=== PATIENT | male | born 1945 | race Two or more races ===

== ENCOUNTER 2020-01-02 11:16 | Inpatient (IN) | payer MEDICARE, OTHER ==
[~2020-01-02] VITALS: Ht 167.6 cm; Wt 79.3 kg
[2020-01-02 12:10] LABS: Basophils # (auto) 0 10 ^3/uL (0-0.2); Basophils % (auto) 0.7 % (0.0-2.0); Eosinophils # (auto) 0.1 10 ^3/uL (0-0.8); Eosinophils % (auto) 2.4 % (0.0-7.0); Hematocrit 40.5 % (41.0-53.0); Hemoglobin 13.8 g/dL (13.5-17.5); Lymphocytes # (auto) 1.3 10 ^3/uL (0.4-5.4); Lymphocytes % (auto) 21.3 % (10.0-50.0); Mean Corpuscular Hemoglobin 32.6 pg (28.0-32.0); Mean Corpuscular Hgb Conc. 34.1 g/dL (32.0-36.0); Mean Corpuscular Volume 95.5 fL (80.0-100.0); Monocytes # (auto) 0.4 10 ^3/uL (0-1.3); Monocytes % (auto) 7.4 % (0.0-12.0); Neutrophils % (auto) 68.2 % (37.0-80.0); Platelet Count (auto) 118 10^3/uL (140-450); Red Blood Cells 4.24 10^6/uL (4.5-5.90); Red Cell Distribution Width 13.6 % (11.8-14.3); White Blood Cell 5.9 10^3/uL (4.4-10.8)
[2020-01-02 12:12] LABS: Albumin 3.8 g/dL (3.4-5.0); Anion Gap 6 (5-15); BUN/Creatinine Ratio 27.7; Blood Urea Nitrogen 26 mg/dL (7-18); Calcium 8.7 mg/dL (8.5-10.1); Carbon Dioxide 23 mmol/L (21-32); Chloride 111 mmol/L (98-107); GFR African American 101 mL/min; GFR Non-African American 83 mL/min; Glucose 116 mg/dL (74-106); Magnesium 2.3 mg/dL (1.6-2.6); Sodium 140 mmol/L (136-145)
[2020-01-02 12:17] LABS: Alanine Aminotransferase 44 U/L (16-61); Alkaline Phosphatase 53 U/L (45-117); Aspartate Aminotransferase 32 U/L (15-37); Bilirubin, Total 0.8 mg/dL (0.2-1.0); Total Protein 6.7 g/dL (6.4-8.2)
--- NOTE | 2020-01-02 13:05 | NUR ---
Telemetry admit from ER REY DONG admitted to Telemetry unit after SBAR received. Patient oriented to Kyra Lincoln, primary RN, unit, room, bed, and unit policies regarding patient care and visiting hours. Patient now on continuous telemetry monitoring, tele box # [id number] and telemetry reading on arrival to unit is . Patient weighed by bedscale and encouraged to call if they need something. All questions and concerns addressed, patient verbalized understanding. Note:
[2020-01-02] MEDS ORDERED: MORPHINE SULF INJ 2 MG/ML SYRINGE 1ML IV PRN (13:45)
[2020-01-02] MEDS ORDERED: NITROGLYCERIN 0.4 MG SL TAB SL PRN (13:45)
[2020-01-02] MEDS ORDERED: DEXTROSE (50%) 50ML SYRG IV PRN (14:00)
[2020-01-02] MEDS ORDERED: ACETAMINOPHEN 500 MG TAB PO PRN (14:00)
[2020-01-02] MEDS ORDERED: ONDANSETRON HCL 4 MG/2 ML VIAL IV PRN (14:00)
[2020-01-02] MEDS ORDERED: traMADol HCL 50 MG TAB PO PRN (14:00)
[2020-01-02] MEDS ORDERED: LACTULOSE 20Gm/30ML SOLN PO PRN (14:00)
[2020-01-02 15:00] VITALS: BP 143/68
--- NOTE | 2020-01-02 15:06 | NUR ---
IV insertion IV access obtained, via clean sterile technique by inserting 22 gauge catheter at after attempt(s). IV secured properly. No trauma to site. Patient tolerated well. NOTE:
[2020-01-02 15:38] LABS: CRP High Sensitivity 0.13 mg/dL (< 0.3)
--- NOTE | 2020-01-02 16:20 | NUR ---
DR. WATT AT BEDSIDE DISCUSSING POC WITH PATIENT. EKG DONE FOR DR. WATT
[2020-01-02 16:29] VITALS: BP 143/68
[2020-01-02 17:00] VITALS: BP 135/60
[2020-01-02] MEDS: InsuLIN REG 1unit/0.01ml Soln (100units/ml) SC SCH ×2 (17:00→22:00)
[2020-01-02] MEDS ORDERED: NAPR375T27 PO (17:12)
[2020-01-02] MEDS ORDERED: SIMV-8 PO (17:12)
[2020-01-02] MEDS ORDERED: BENA20TA14 PO (17:12)
[2020-01-02] MEDS ORDERED: TAMS1CAP25 PO (17:12)
[2020-01-02] MEDS ORDERED: CITA-73 PO (17:12)
[2020-01-02] MEDS ORDERED: MEMA1TAB3 PO (17:12)
[2020-01-02] MEDS ORDERED: DONE10TA40 PO (17:12)
[2020-01-02] MEDS: SODIUM CHLORIDE 0.9% 1,000 ML IV SCH (17:32)
[2020-01-02] MEDS: ACCU-CHEK COMFORT CURVE STRIP VI SCH ×2 (17:32→22:07)
--- NOTE | 2020-01-02 20:00 | NUR ---
Opening Shift Note Assumed care of patient. Awake, alert and oriented x4. No S/S of distress/SOB or pain. Instructed on POC and to call for assist PRN. Bed locked, in lowest position, call light within reach, side rails up x2, bed alarm on. Will continue to monitor for changes Q1hr and PRN.
--- NOTE | 2020-01-02 20:10 | NUR ---
SPOKE WITH DAUGHTER IN LAW Spoke with CLARE Escudero about POC of patient. Phone number for Kena [phone]. Password verified. Concerns about patient were addressed with Kena. Verbalized understanding. Will continue with care.
[2020-01-02 22:00] VITALS: BP 106/59
[2020-01-02] MEDS ORDERED: ATORVASTATIN 20 MG TAB PO SCH (22:00)
[2020-01-03] MEDS: SODIUM CHLORIDE 0.9% 1,000 ML IV SCH (04:23)
[2020-01-03 04:37] VITALS: BP 108/54
[2020-01-03] MEDS: InsuLIN REG 1unit/0.01ml Soln (100units/ml) SC SCH ×2 (06:34→11:21)
[2020-01-03] MEDS: ACCU-CHEK COMFORT CURVE STRIP VI SCH ×2 (06:34→11:21)
--- NOTE | 2020-01-03 07:10 | NUR ---
OPENING SHIFT NOTE ASSUMED CARE FROM [employer] [facility]. PATIENT IS AWAKE, ALERT, AND ORIENTED X4. PATIENT HAS NO S/S OF DISTRESS/SOB OR PAIN. INSTRUCTED PATIENT ON POC, PATIENT VERBALIZED UNDERSTANDING. BED IS IN LOWEST POSITION WITH SIDE RAILS RAISED X2, BED WHEELS LOCKED, AND CALL LIGHT IS WITHIN REACH. WILL CONTINUE TO MONITOR.
[2020-01-03 08:10] VITALS: BP 109/60
[2020-01-03 09:00] VITALS: BP 109/60
[2020-01-03] MEDS ORDERED: ENOXAPARIN SOD 40 MG/0.4 ML SYRINGE SC SCH (10:00)
[2020-01-03 10:04] LABS: Urine Bacteria NONE SEEN /hpf (None Seen); Urine Blood Negative /uL (Negative); Urine Specific Gravity 1.011 (1.001-1.035); Urine WBC 1 /hpf (0 - 3)
--- NOTE | 2020-01-03 10:30 | NUR ---
SPOKE WITH DR. HANCOCK AND DR. WATT UPDATED DOCTORS ON PATIENT'S STATUS, DOCTORS ARE AWARE AND AGREE PATIENT CAN BE DISCHARGED. WILL FOLLOW THROUGH WITH ORDERS.
--- NOTE | 2020-01-03 10:45 | NUR ---
SPOKE WITH SON TOYIN. PER TOYIN THERE IS NO POA AT THIS TIME AND FATHER STILL SIGNS HIS OWN PAPERWORK.
--- NOTE | 2020-01-03 11:48 | NUR ---
Discharge instructions given as ordered. Encourage to follow up with PMD as instructed. All questions and concerns addressed. Patient verbalized understanding. Medication reconciliation form completed and copy given to patient. IV removed with catheter intact, pressure dressing applied. Telemetry unit returned to ICU. Patient ambulated to vehicle with walker with all personal belongings, accompanied by staff and family member. No distress noted at time of departure.
== END 2020-01-03 11:44 | disposition home or self-care (01) | DRG 310 ==
LOC: ER 11:16 → TELE-CENTR 11:17
PROVIDERS: ADMIT Internal Medicine; ATTEND Internal Medicine
DX: R00.1 Bradycardia, unspecified (principal); E11.9 Type 2 diabetes mellitus without complications; F03.90 Unspecified dementia, unspecified severity, without behavioral disturbance, psychotic disturbance, mood disturbance, and anxiety; I10 Essential (primary) hypertension; N40.0 Benign prostatic hyperplasia without lower urinary tract symptoms; Z96.652 Presence of left artificial knee joint; E78.5 Hyperlipidemia, unspecified; Z80.3 Family history of malignant neoplasm of breast; Z82.3 Family history of stroke; Z83.3 Family history of diabetes mellitus
CPT/HCPCS: 36415; 70450; 71045; 80053; 81001; 82550; 82962; 83036; 83735; 83880; 84443; 84484; 85025; 85652; 86141; 93005; G0378

== ENCOUNTER 2023-08-01 11:36 | Emergency (ER) | payer MEDICARE ==
[~2023-08-01] VITALS: Ht 165.1 cm; Wt 77.3 kg
[~2023-08-01 11:36] MED LIST: BENA-36 PO; CITA-73 PO; DONE1TAB88 PO; MEMA1TAB3 PO; NAPR-957 PO; SIMV20TA20 PO; TAMS1CAP25 PO
[2023-08-01 12:10] VITALS: PULSE 55; RESP 16; O2SAT 99
[2023-08-01 13:34] LABS: Basophils # (auto) 0 10 ^3/uL (0-0.2); Basophils % (auto) 0.4 % (0.0-2.0); Eosinophils # (auto) 0.1 10 ^3/uL (0-0.8); Eosinophils % (auto) 1.1 % (0.0-7.0); Hematocrit 37.7 % (41.0-53.0); Hemoglobin 12.6 g/dL (13.5-17.5); Lymphocytes % (auto) 17.4 % (10.0-50.0); Mean Corpuscular Hemoglobin 31.6 pg (28.0-32.0); Mean Corpuscular Hgb Conc. 33.5 g/dL (32.0-36.0); Mean Corpuscular Volume 94.3 fL (80.0-100.0); Monocytes # (auto) 0.5 10 ^3/uL (0-1.3); Monocytes % (auto) 8.4 % (0.0-12.0); Neutrophils # (auto) 4.3 10 ^3/uL (1.6-8.6); Neutrophils % (auto) 72.7 % (37.0-80.0); Red Cell Distribution Width 13.4 % (11.8-14.3); White Blood Cell 5.9 10^3/uL (4.4-10.8)
[2023-08-01 13:56] LABS: Alanine Aminotransferase 12 U/L (7-40); Alkaline Phosphatase 97 U/L (46-116); Anion Gap 5 (5-15); BUN/Creatinine Ratio 15.3 (10.0-20.0); Blood Urea Nitrogen 13 mg/dL (9-23); Calcium 8.8 mg/dL (8.7-10.4); Carbon Dioxide 28 mmol/L (20-30); Chloride 108 mmol/L (98-107); Glucose 108 mg/dL (74-106); Potassium 4.3 mmol/L (3.5-5.1); Sodium 141 mmol/L (136-145)
[2023-08-01 13:57] LABS: Albumin 3.7 g/dL (3.2-4.8); Aspartate Aminotransferase 13 U/L (13-40); Bilirubin, Total 0.6 mg/dL (0.2-1.0); Total Protein 5.8 g/dL (5.7-8.2)
[2023-08-01 16:00] VITALS: BP 102/66; PULSE 59; RESP 18; O2SAT 98
== END 2023-08-01 17:38 | disposition home or self-care (01) ==
LOC: EDBD 11:36 → EDUNIT# 11:36 → ER 11:36
DX: R07.81 Pleurodynia (principal); M54.2 Cervicalgia; I10 Essential (primary) hypertension; E78.5 Hyperlipidemia, unspecified; E11.9 Type 2 diabetes mellitus without complications; Z88.0 Allergy status to penicillin
CPT/HCPCS: 36415; 70450; 71101; 71250; 72125; 74176; 80053; 83605; 83735; 84484; 85025

== ENCOUNTER 2024-01-27 11:46 | Inpatient (IN) | payer MEDICARE, MEDICAID ==
[~2024-01-27] VITALS: Ht 185.4 cm; Wt 67.5 kg
[2024-01-27 12:05] VITALS: O2SAT 97
[2024-01-27] MEDS: SODIUM CHLORIDE 0.9% 1,000 ML IVB ONE (12:36)
[2024-01-27 12:47] LABS: Basophils # (auto) 0 10 ^3/uL (0-0.2); Basophils % (auto) 0.1 % (0.0-2.0); Eosinophils # (auto) 0 10 ^3/uL (0-0.8); Eosinophils % (auto) 0.1 % (0.0-7.0); Hematocrit 37.3 % (41.0-53.0); Hemoglobin 12.6 g/dL (13.5-17.5); Lymphocytes # (auto) 0.8 10 ^3/uL (0.4-5.4); Lymphocytes % (auto) 10.1 % (10.0-50.0); Mean Corpuscular Hemoglobin 32.3 pg (28.0-32.0); Mean Corpuscular Hgb Conc. 33.8 g/dL (32.0-36.0); Mean Corpuscular Volume 95.6 fL (80.0-100.0); Monocytes # (auto) 0.6 10 ^3/uL (0-1.3); Monocytes % (auto) 6.8 % (0.0-12.0); Neutrophils # (auto) 6.9 10 ^3/uL (1.6-8.6); Neutrophils % (auto) 82.9 % (37.0-80.0); White Blood Cell 8.3 10^3/uL (4.4-10.8)
[2024-01-27 13:01] LABS: INR 1.06 (0.9-1.15); Partial Thromboplastin Time 22.6 SEC (24.5-34.5); Prothrombin Time 11.2 sec (9.3-11.8)
[2024-01-27 13:10] LABS: Alanine Aminotransferase 19 U/L (7-40); Albumin 3.9 g/dL (3.2-4.8); Alkaline Phosphatase 78 U/L (46-116); Anion Gap 8 (5-15); Aspartate Aminotransferase 16 U/L (13-40); Bilirubin, Total 0.7 mg/dL (0.2-1.0); Blood Alcohol < 3.0 mg/dL (<10); Blood Urea Nitrogen 32 mg/dL (9-23); Calcium 9.2 mg/dL (8.5-10.1); Carbon Dioxide 25 mmol/L (20-30); Chloride 110 mmol/L (98-107); Glucose 111 mg/dL (74-106); Magnesium 1.9 mg/dL (1.6-2.6); Sodium 143 mmol/L (136-145); Total Protein 5.6 g/dL (5.7-8.2)
[2024-01-27] MEDS: HALOPERIDOL LACTATE 5 MG/ML INJ VIAL IV ONE (15:41)
[2024-01-27] MEDS: HALOPERIDOL LACTATE 5 MG/ML INJ VIAL IM ONE (15:58)
[2024-01-27] MEDS: diphenhdrAMINE HCL 50 MG/1 ML VL IV ONE (16:16)
[2024-01-27 17:51] LABS: Urine Bacteria None Seen /hpf (None Seen)
[2024-01-27 18:16] LABS: Urine Blood Negative /uL (Negative); Urine Clarity Clear (Clear); Urine Color Yellow (Yellow); Urine Mucus FEW (None Seen); Urine Protein, UAD TRACE (Negative); Urine Urobilinogen 2 mg/dL (Negative); Urine WBC 1 /hpf (0 - 3)
[2024-01-27 18:18] LABS: Amphetamine Screen, Urine Neg (NEGATIVE); Barbiturate Scree,Urine Neg (NEGATIVE); Benzodiazephine Screen, Urine Neg (NEGATIVE); Cannabinoid Screen, Urine Pos (NEGATIVE); Cocaine Screen, Urine Neg (NEGATIVE); Opiate Scree,Urine Neg (NEGATIVE); Phencyclidine Screen, Urine Neg (NEGATIVE)
[2024-01-27] MEDS ORDERED: SODIUM CHLORIDE 0.9% 1,000 ML IV SCH (19:15)
[2024-01-27] MEDS ORDERED: SODIUM CHLORIDE 0.9% 1,850 ML IV ONE (19:15)
[2024-01-27] MEDS ORDERED: DEXTROSE (50%) 50ML SYRG IV PRN (19:15)
[2024-01-27 19:30] LABS: Triglycerides 100 mg/dL (< 150)
[2024-01-27 19:31] LABS: LDL Cholesterol 93 mg/dL (< 100)
[2024-01-27 19:32] LABS: Cholesterol 157 mg/dL (< 200); HDL Cholesterol 48 mg/dL (40-59)
[2024-01-27 20:00] VITALS: PULSE 51; RESP 16; O2SAT 99
[2024-01-27] MEDS: SODIUM CHLORIDE 0.9% 1,850 ML IV ONE (20:03)
[2024-01-27] MEDS: SODIUM CHLORIDE 0.9% 1,000 ML IV SCH (21:07)
[2024-01-27 22:00] VITALS: BP 110/56; PULSE 50; RESP 20; TEMP 97.7; O2SAT 100
[2024-01-27] MEDS ORDERED: PATIENTS OWN MEDICATION (Donepezil Hydrochloride (Donepezil Hcl) 1 TAB) PO SCH (22:00)
[2024-01-27] MEDS: InsuLIN REG 1unit/0.01ml Soln (100units/ml) SC SCH (22:00)
[2024-01-27] MEDS ORDERED: MEMANTINE HCL 5 MG TAB PO SCH (22:00)
[2024-01-27] MEDS: MEMANTINE HCL 5 MG TAB PO SCH (22:41)
[2024-01-27] MEDS: ACCU-CHEK COMFORT CURVE STRIP VI SCH (22:41)
[2024-01-27] MEDS ORDERED: HYDR-3682 PO (23:05)
[2024-01-27] MEDS ORDERED: FLUO10TA18 PO (23:05)
[2024-01-27] MEDS ORDERED: RISP0.5T45 PO (23:05)
[2024-01-27 23:42] VITALS: BP 116/56; PULSE 50; RESP 20; TEMP 97.7; O2SAT 99
[2024-01-28] VITALS (7 sets, daily range): BP systolic 96–143; BP diastolic 39–77; PULSE 48–73; RESP 16–20; TEMP 98–98.7; O2SAT 95–100
[2024-01-28 05:57] LABS: Basophils # (auto) 0 10 ^3/uL (0-0.2); Basophils % (auto) 0.4 % (0.0-2.0); Eosinophils # (auto) 0 10 ^3/uL (0-0.8); Eosinophils % (auto) 0.2 % (0.0-7.0); Hematocrit 35.5 % (41.0-53.0); Lymphocytes % (auto) 18.3 % (10.0-50.0); Mean Corpuscular Hemoglobin 32.3 pg (28.0-32.0); Mean Corpuscular Hgb Conc. 33.8 g/dL (32.0-36.0); Mean Corpuscular Volume 95.6 fL (80.0-100.0); Monocytes # (auto) 0.3 10 ^3/uL (0-1.3); Neutrophils # (auto) 4.3 10 ^3/uL (1.6-8.6); Neutrophils % (auto) 75.1 % (37.0-80.0); Nucleated Red Blood Cells % 0.1 %; Red Blood Cells 3.71 10^6/uL (4.5-5.90); Red Cell Distribution Width 14.4 % (11.8-14.3); White Blood Cell 5.7 10^3/uL (4.4-10.8)
[2024-01-28 06:19] LABS: Alanine Aminotransferase 16 U/L (7-40); Albumin 3.4 g/dL (3.2-4.8); Alkaline Phosphatase 69 U/L (46-116); Aspartate Aminotransferase 23 U/L (13-40); BUN/Creatinine Ratio 28.2 (10.0-20.0); Bilirubin, Total 0.9 mg/dL (0.2-1.0); Blood Urea Nitrogen 22 mg/dL (9-23); Calcium 8.5 mg/dL (8.5-10.1); Chloride 113 mmol/L (98-107); Glucose 87 mg/dL (74-106); Potassium 3.8 mmol/L (3.5-5.1); Sodium 142 mmol/L (136-145); Total Protein 5.1 g/dL (5.7-8.2)
[2024-01-28 06:20] LABS: Anion Gap 8 (5-15); Carbon Dioxide 21 mmol/L (20-30)
[2024-01-28] MEDS: CITALOPRAM HYDROBR 20 MG TAB PO SCH (10:00)
[2024-01-28] MEDS: ENOXAPARIN SOD 40 MG/0.4 ML SYRINGE SC SCH (10:00)
[2024-01-28] MEDS: TAMSULOSIN HYDROCHLORIDE 0.4 MG CAP PO SCH (10:00)
[2024-01-28] MEDS ORDERED: CITALOPRAM HYDROBROMIDE 20 MG PO SCH (10:00)
[2024-01-28] MEDS: DONEPEZIL HYDROCHLORIDE 5 MG TAB PO SCH (10:00)
[2024-01-28] MEDS ORDERED: TAMSULOSIN HYDROCHLORIDE 0.4 MG CAP PO SCH (10:00)
[2024-01-28] MEDS ORDERED: ENOXAPARIN SOD 40 MG/0.4 ML SYRINGE SC SCH (10:00)
[2024-01-28] MEDS: SODIUM CHLORIDE 0.9% 500 ML IV ONE ×2 (17:45→21:18)
[2024-01-28] MEDS ORDERED: PATIENTS OWN MEDICATION (Simvastatin 1 TAB) PO SCH (18:00)
[2024-01-28] MEDS: ATORVASTATIN 20 MG TAB PO SCH (18:53)
[2024-01-29 01:04] VITALS: BP 128/61; PULSE 58; RESP 19; TEMP 98.6; O2SAT 100
[2024-01-29 05:19] VITALS: BP 105/41; PULSE 54; RESP 19; TEMP 98.9; O2SAT 98
[2024-01-29 06:28] LABS: Calcium 8.5 mg/dL (8.5-10.1); Chloride 111 mmol/L (98-107); Potassium 3.8 mmol/L (3.5-5.1); Sodium 141 mmol/L (136-145)
[2024-01-29 06:29] LABS: Anion Gap 7 (5-15); Carbon Dioxide 23 mmol/L (20-30)
[2024-01-29 06:34] LABS: Blood Urea Nitrogen 18 mg/dL (9-23); Glucose 85 mg/dL (74-106)
[2024-01-29 07:24] LABS: Basophils # (auto) 0 10 ^3/uL (0-0.2); Basophils % (auto) 0.3 % (0.0-2.0); Eosinophils # (auto) 0 10 ^3/uL (0-0.8); Eosinophils % (auto) 0.6 % (0.0-7.0); Hematocrit 35.8 % (41.0-53.0); Hemoglobin 12.1 g/dL (13.5-17.5); Lymphocytes % (auto) 16.5 % (10.0-50.0); Mean Corpuscular Hemoglobin 32.1 pg (28.0-32.0); Mean Corpuscular Hgb Conc. 33.8 g/dL (32.0-36.0); Mean Corpuscular Volume 94.8 fL (80.0-100.0); Monocytes # (auto) 0.4 10 ^3/uL (0-1.3); Monocytes % (auto) 5.8 % (0.0-12.0); Neutrophils # (auto) 4.7 10 ^3/uL (1.6-8.6); Neutrophils % (auto) 76.8 % (37.0-80.0); Nucleated Red Blood Cells % 0.1 %; Red Blood Cells 3.78 10^6/uL (4.5-5.90); Red Cell Distribution Width 14.1 % (11.8-14.3); White Blood Cell 6.1 10^3/uL (4.4-10.8)
[2024-01-29 07:30] VITALS: PULSE 62; RESP 18; O2SAT 98
[2024-01-29 09:00] VITALS: BP 132/50; PULSE 62; RESP 18; TEMP 98.6; O2SAT 98
[2024-01-29 13:00] VITALS: BP 127/50; PULSE 60; RESP 18; TEMP 98.5; O2SAT 96
[2024-01-29] MEDS ORDERED: LOPERAMIDE HCL 2 MG CAP/TAB PO PRN (15:15)
[2024-01-29] MEDS: LOPERAMIDE HCL 2 MG CAP/TAB PO ONE (16:06)
== END 2024-01-29 18:23 | disposition home or self-care (01) | DRG 640 ==
LOC: ER 11:46 → EDBD 11:46 → ER 19:05 → TELE 19:05 → TELE-EAST 22:00 → EAST 01-29 01:31
PROVIDERS: ADMIT Internal Medicine; ATTEND Internal Medicine
DX: E86.0 Dehydration (principal); G93.41 Metabolic encephalopathy; N17.0 Acute kidney failure with tubular necrosis; F03.90 Unspecified dementia, unspecified severity, without behavioral disturbance, psychotic disturbance, mood disturbance, and anxiety; I50.9 Heart failure, unspecified; I11.0 Hypertensive heart disease with heart failure; N40.0 Benign prostatic hyperplasia without lower urinary tract symptoms; E11.9 Type 2 diabetes mellitus without complications; E78.5 Hyperlipidemia, unspecified; Z88.0 Allergy status to penicillin; Z82.3 Family history of stroke
CPT/HCPCS: 36415; 70450; 71045; 80048; 80053; 80061; 80307; 80320; 81001; 82140; 82550; 82962; 83036; 83605; 83735; 83880; 84443; 84484; 85025; 85610; 85730; 87040; 93005; 96361; 96372; 96374; G0378